=== PATIENT | male | born 1975 | race Caucasian/White ===

== ENCOUNTER 2017-11-20 12:40 | Emergency (ER) | payer BC, OTHER ==
[2017-11-20] MEDS ORDERED: Sodium Chloride 0.9% 1,000 ML IV ONE ×2 (13:20→13:26)
[2017-11-20] MEDS ORDERED: LORazepam 2 MG/ML SDV IVPUSH ONE (13:20)
[2017-11-20] MEDS ORDERED: Atenolol 50 MG Tab PO ONE (13:20)
[2017-11-20] MEDS ORDERED: chlordiazePOXIDE 25 MG Cap PO ONE (13:27)
[2017-11-20] MEDS ORDERED: Folic Acid 1 MG Tab PO ONE (13:27)
[2017-11-20] MEDS ORDERED: Thiamine 100 MG Tab PO ONE (13:27)
--- NOTE | 2017-11-20 13:31 | EDM.PDOCBH ---
ED HPI GENERAL MEDICAL PROBLEM - General Chief Complaint: Chest Pain Stated Complaint: TIGHT CHEST Time Seen by Provider: 11/20/17 13:05 Source of Information: Reports: Patient History Limitations: Reports: No Limitations - History of Present Illness INITIAL COMMENTS - FREE TEXT/NARRATIVE: Patient is a 42-year-old male presents ED complaining of chest tightness, tremors, and sweating. Patient states over the past few months after lunch he's been noticing that he started to shake. Patient states he drinks alcohol on a regular basis. As of recent has noticed an increased consumption of alcohol in the evening just prior to bedtime. He drinks to go to bed. This helps him settle down. He has no history of anxiety. States he's been doing this for the past 12 years every day. With the tremors and diaphoresis he became anxious and felt some palpitations along with increased breathing rate. This is when his chest felt tight. He does not believe he is an alcoholic. He's never underwent inpatient or outpatient treatment for alcoholism. He has no additional past medical history and currently taking no medications. He has no surgical history. Denies any smoking. Denies any recreational drug use. Their is no first degree relative with heart disease. Chest Pain Score (Numeric/FACES): 1 - Related Data Allergies Allergy/AdvReac Type Severity Reaction Status Date / Time No Known Allergies Allergy Verified 11/20/17 12:49 Home Meds: Home Meds . [No Known Home Meds] 10/12/14 [History] Past Medical History HEENT History: Reports: Impaired Vision Musculoskeletal History: Reports: Back Pain, Chronic - Past Surgical History GI Surgical History: Reports: Cholecystectomy Social & Family History - Tobacco Use Second Hand Smoke Exposure: Yes - Caffeine Use Caffeine Use: Reports: Coffee Other Caffeine Use: cut down in the last week d/t shakiness - Alcohol Use Days Per Week of Alcohol Use: 7 Number of Drinks Per Day: 2 Total Drinks Per Week: 14 Date of Last Drink: 11/19/17 - Recreational Drug Use Recreational Drug Use: No ED ROS GENERAL - Review of Systems Review Of Systems: See Below Constitutional: Reports: No Symptoms HEENT: Reports: No Symptoms Respiratory: Reports: No Symptoms Cardiovascular: Reports: Palpitations. Denies: Chest Pain, Dyspnea on Exertion , Edema, Lightheadedness GI/Abdominal: Reports: No Symptoms Musculoskeletal: Reports: No Symptoms Skin: Reports: No Symptoms Neurological: Reports: Tremors. Denies: Confusion, Dizziness, Headache, Numbness, Pre-Existing Deficit, Seizure, Syncope, Tingling, Trouble Speaking, Difficulty Walking, Weakness Psychiatric: Reports: Anxiety, Cravings. Denies: Agitation, Depression, Hallucinations, Homicidal Ideation, Mood Lability, Suicidal Ideation ED EXAM, BEHAVIORAL HEALTH - Physical Exam Exam: See Below Exam Limited By: No Limitations General Appearance: Alert, WD/WN, Anxious Eye Exam: Bilateral Eye: EOMI, Nystagmus (none noted), PERRL Ears: Hearing Grossly Normal Nose: Normal Inspection Throat/Mouth: Normal Voice, No Airway Compromise, Other (dry oral mucosa) Neck: Normal Inspection, Supple Respiratory/Chest: No Respiratory Distress, Lungs Clear, Normal Breath Sounds, No Accessory Muscle Use, Chest Non-Tender Cardiovascular: Normal Peripheral Pulses, Regular Rate, Rhythm, No Murmur GI/Abdominal: Normal Bowel Sounds, Soft, Non-Tender, No Organomegaly, No Distention Back Exam: Normal Inspection Extremities: Normal Inspection, Normal Range of Motion Neurological: Alert, CN II-XII Intact, Normal Cognition, Normal Gait, No Motor/ Sensory Deficits, Oriented x 3 Psychiatric: Alert, Normal Affect, Normal Cognition, Oriented, Other (anxious). No: Uncooperative, Homicidal Thoughts, Suicidal Plan, Suicidal Thoughts, Auditory Hallucinations, Visual Hallucinations, Pressured Speech COURSE, BEHAVIORAL HEALTH COMP - Course Vital Signs: Last Vital Signs Temp 97.4 F 11/20/17 16:25 Pulse 78 11/20/17 16:25 Resp 22 H 11/20/17 16:25 BP 129/94 H 11/20/17 16:25 Pulse Ox 98 11/20/17 16:25 Orders, Labs, Meds: Active Orders 24 hr Category Date Time Status EKG Documentation Completion [RC] ASDIRECTED Care 11/20/17 13:53 Active DRUG SCREEN, URINE [URCHEM] Stat Lab 11/20/17 14:30 Ordered EKG 12 Lead [EK] Stat Ther 11/20/17 13:53 Ordered Laboratory Tests 11/20/17 11/20/17 11/20/17 Range/Units 13:02 13:05 13:05 WBC 5.40 (4.23-9.07) K/mm3 RBC 4.39 L (4.63-6.08) M/mm3 Hgb 14.9 (13.7-17.5) gm/L Hct 45.3 (40.1-51.0) % MCV 103.2 H (79.0-92.2) fl MCH 33.9 H (25.7-32.2) pg MCHC 32.9 (32.2-35.5) g/dl RDW Std Deviation 48.4 H (35.1-43.9) fL Plt Count 157 L (163-337) K/mm3 MPV 9.3 L (9.4-12.3) fl Neutrophils % (Manual) 65 H (40-60) % Band Neutrophils % 0 (0-10) % Lymphocytes % (Manual) 31 (20-40) % Atypical Lymphs % 0 % Monocytes % (Manual) 4 (2-10) % Eosinophils % (Manual) 0 L (0.8-7.0) % Basophils % (Manual) 0 L (0.2-1.2) Toxic Granulation 2+ moderate Platelet Estimate Adequate Plt Morphology Comment Normal RBC Morph Comment Normal Sodium 140 (136-145) mEq/L Potassium 3.6 (3.5-5.1) mEq/L Chloride 102 (98-107) mEq/L Carbon Dioxide 24 (21-32) mEq/L Anion Gap 17.6 H (5-15) BUN 10 (7-18) mg/dL Creatinine 1.0 (0.7-1.3) mg/dL Est Cr Clr Drug Dosing 106.53 mL/min Estimated GFR (MDRD) > 60 (>60) mL/min BUN/Creatinine Ratio 10.0 L (14-18) Glucose 171 H (74-106) mg/dL POC Glucose 150 H (70-105) mg/dL Calcium 8.6 (8.5-10.1) mg/dL Magnesium (1.8-2.4) mg/dl Total Bilirubin 1.3 H (0.2-1.0) mg/dL AST 239 H (15-37) U/L ALT 263 H (16-63) U/L Alkaline Phosphatase 77 (46-116) U/L Troponin I (0.00-0.056) ng/mL Total Protein 8.6 H (6.4-8.2) g/dl Albumin 3.9 (3.4-5.0) g/dl Globulin 4.7 gm/dL Albumin/Globulin Ratio 0.8 L (1-2) TSH 3rd Generation 1.366 (0.358-3.74) uIU/mL Urine Color (Yellow) Urine Appearance (Clear) Urine pH (5.0-8.0) Ur Specific [place] (1.005-1.030) Urine Protein (Negative) Urine Glucose (UA) (Negative) Urine Ketones (Negative) Urine Occult Blood (Negative) Urine Nitrite (Negative) Urine Bilirubin (Negative) Urine Urobilinogen (0.2-1.0) Ur Leukocyte Esterase (Negative) Urine RBC (0-5) /hpf Urine WBC (0-5) /hpf Ur Epithelial Cells (0-5) /hpf Urine Bacteria (FEW) /hpf Urine Mucus (FEW) /hpf Urine Opiates Screen (NEGATIVE) Ur Buprenorphine Scrn (NEGATIVE) Ur Oxycodone Screen (NEGATIVE) Urine Methadone Screen (NEGATIVE) Ur Propoxyphene Screen (NEGATIVE) Ur Barbiturates Screen (NEGATIVE) Ur Tricyclics Screen (NEGATIVE) Ur Phencyclidine Scrn (NEGATIVE) Ur Amphetamine Screen (NEGATIVE) U Methamphetamines Scrn (NEGATIVE) U Benzodiazepines Scrn (NEGATIVE) U Cocaine Metab Screen (NEGATIVE) U Marijuana (THC) Screen (NEGATIVE) Ethyl Alcohol (0.00) gm% 11/20/17 11/20/17 11/20/17 Range/Units 13:05 14:30 14:30 WBC (4.23-9.07) K/mm3 RBC (4.63-6.08) M/mm3 Hgb (13.7-17.5) gm/L Hct (40.1-51.0) % MCV (79.0-92.2) fl MCH (25.7-32.2) pg MCHC (32.2-35.5) g/dl RDW Std Deviation (35.1-43.9) fL Plt Count (163-337) K/mm3 MPV (9.4-12.3) fl Neutrophils % (Manual) (40-60) % Band Neutrophils % (0-10) % Lymphocytes % (Manual) (20-40) % Atypical Lymphs % % Monocytes % (Manual) (2-10) % Eosinophils % (Manual) (0.8-7.0) % Basophils % (Manual) (0.2-1.2) Toxic Granulation Platelet Estimate Plt Morphology Comment RBC Morph Comment Sodium (136-145) mEq/L Potassium (3.5-5.1) mEq/L Chloride (98-107) mEq/L Carbon Dioxide (21-32) mEq/L Anion Gap (5-15) BUN (7-18) mg/dL Creatinine (0.7-1.3) mg/dL Est Cr Clr Drug Dosing mL/min Estimated GFR (MDRD) (>60) mL/min BUN/Creatinine Ratio (14-18) Glucose (74-106) mg/dL POC Glucose (70-105) mg/dL Calcium (8.5-10.1) mg/dL Magnesium 1.8 (1.8-2.4) mg/dl Total Bilirubin (0.2-1.0) mg/dL AST (15-37) U/L ALT (16-63) U/L Alkaline Phosphatase (46-116) U/L Troponin I < 0.017 (0.00-0.056) ng/mL Total Protein (6.4-8.2) g/dl Albumin (3.4-5.0) g/dl Globulin gm/dL Albumin/Globulin Ratio (1-2) TSH 3rd Generation (0.358-3.74) uIU/mL Urine Color Yellow (Yellow) Urine Appearance Clear (Clear) Urine pH 6.5 (5.0-8.0) Ur Specific [place] 1.025 (1.005-1.030) Urine Protein 1+ H (Negative) Urine Glucose (UA) Negative (Negative) Urine Ketones Trace H (Negative) Urine Occult Blood Negative (Negative) Urine Nitrite Negative (Negative) Urine Bilirubin Negative (Negative) Urine Urobilinogen 1.0 (0.2-1.0) Ur Leukocyte Esterase Negative (Negative) Urine RBC 0-5 (0-5) /hpf Urine WBC 0-5 (0-5) /hpf Ur Epithelial Cells 0-5 (0-5) /hpf Urine Bacteria Not seen (FEW) /hpf Urine Mucus Not seen (FEW) /hpf Urine Opiates Screen Negative (NEGATIVE) Ur Buprenorphine Scrn Negative (NEGATIVE) Ur Oxycodone Screen Negative (NEGATIVE) Urine Methadone Screen Negative (NEGATIVE) Ur Propoxyphene Screen Negative (NEGATIVE) Ur Barbiturates Screen Negative (NEGATIVE) Ur Tricyclics Screen Negative (NEGATIVE) Ur Phencyclidine Scrn Negative (NEGATIVE) Ur Amphetamine Screen Negative (NEGATIVE) U Methamphetamines Scrn Negative (NEGATIVE) U Benzodiazepines Scrn Negative (NEGATIVE) U Cocaine Metab Screen Negative (NEGATIVE) U Marijuana (THC) Screen Negative (NEGATIVE) Ethyl Alcohol 0.06 (0.00) gm% Medications Discontinued Medications Generic Name Dose Route Start Last Admin Trade Name Freq PRN Reason Stop Dose Admin Atenolol 50 mg 11/20/17 13:20 11/20/17 13:39 Tenormin PO 11/20/17 13:21 50 mg ONETIME ONE Administration Chlordiazepoxide HCl 50 mg 11/20/17 13:27 11/20/17 13:39 Librium PO 11/20/17 13:28 50 mg ONETIME ONE Administration Folic Acid 1 mg 11/20/17 13:27 11/20/17 13:39 Folic Acid PO 11/20/17 13:28 1 mg ONETIME ONE Administration Sodium Chloride 1,000 mls @ 999 mls/hr 11/20/17 13:20 11/20/17 13:37 Normal Saline IV 11/20/17 14:20 999 mls/hr ONETIME ONE Administration Sodium Chloride 1,000 mls @ 999 mls/hr 11/20/17 13:26 11/20/17 14:37 Normal Saline IV 11/20/17 14:26 999 mls/hr ONETIME ONE Administration Lorazepam 0 mg 11/20/17 13:20 11/20/17 13:42 Ativan IVPUSH 11/20/17 13:21 2 mg ASDIRECTED ONE Administration Protocol Thiamine HCl 100 mg 11/20/17 13:27 11/20/17 13:40 Vitamin B-1 PO 11/20/17 13:28 100 mg ONETIME ONE Administration Re-Assessment/Re-Exam: IV established with normal saline 2 L IV, thiamine her milligrams by mouth, folic acid 1 mg by mouth, atenolol 50 mg by mouth, and Librium 50 mg by mouth. Initial labs and studies will include: CBC, chem 14, drug screen, TSH, UA, troponin, serum EtOH, and magnesium. EKG: sinus tachycardia, rate of 110, no acute st changes noted. Sodium and potassium within normal limits. AG mildly elevated at 17.6. Creatinine 1.0. Glucose 171. Magnesium 1.8. AST and ALT elevated. Troponin less than 0.017. TSH 1.366. Serum EtOH 0.06. 1532 Reassessment, patient is feeling much better with the above therapies. He has no chest pain or sob. He does not want help for alcoholism. I have offered contact information for different treatment facilities here locally. In addition I will provide Librium and also atenolol on discharge for the next 5 days for alcohol withdrawal symptoms. He will call and make an appointment to be evaluated. He had no additional questions or concerns. 1548 I did call lab. CBC has not been resulted. This has not been read yet. Results are pending. Patient has not been able to provide a UA sample. I initially was going to send patient home with atenolol and librium. Patient does not believe he has a problem. I have a high suspicion he will consume alcohol this evening. Thus I have opted not to send patient home with medications. Departure - Departure Time of Disposition: 15:49 Disposition: Home, Self-Care 01 Condition: Good Clinical Impression: Alcoholism /alcohol abuse Alcohol withdrawal Qualifiers: Complication of substance-induced condition: uncomplicated Qualified Code(s): F10.230 - Alcohol dependence with withdrawal, uncomplicated - Discharge Information Instructions: Alcohol Use Disorder, Chemical Dependency Referrals: Pavel Gomez LAC [Licensed Counselor] - [facility] [Outside] Forms: ED Department Discharge Additional Instructions: Push the fluids. Refrain from alcohol use. Call Pavel Barrera office tomorrow morning for an appt to be evaluated. If unable to get into an appt please call [facility]. Please return to the E.D. if you develop any new or worsening symptoms. - My Orders Last 24 Hours: My Active Orders 11/20/17 13:53 EKG Documentation Completion [RC] ASDIRECTED EKG 12 Lead [EK] Stat 11/20/17 14:30 DRUG SCREEN, URINE [URCHEM] Stat - Assessment/Plan Last 24 Hours: My Active Orders 11/20/17 13:53 EKG Documentation Completion [RC] ASDIRECTED EKG 12 Lead [EK] Stat 11/20/17 14:30 DRUG SCREEN, URINE [URCHEM] Stat
== END 2017-11-20 16:27 | disposition home or self-care (01) ==
LOC: JD.ED 12:40
DX: F10.230 Alcohol dependence with withdrawal, uncomplicated (principal)
CPT/HCPCS: 36415; 80053; 80306; 81001; 82962; 83735; 84443; 84484; 85007; 85027; 93005; 96361; 96374; 99285; A9270; G0480; J2060; J7040

== ENCOUNTER 2019-01-01 18:44 | Inpatient (IN) | payer BC ==
[2019-01-01] MEDS ORDERED: Thiamine 100 MG Tab PO ONE (19:45)
[2019-01-01] MEDS ORDERED: Ondansetron 4 MG/2 ML SDV IVPUSH ONE (19:45)
[2019-01-01] MEDS ORDERED: Sodium Chloride 0.9% 1,000 ML IV SCH (19:45)
[2019-01-01] MEDS ORDERED: LORazepam 2 MG/ML SDV IVPUSH ONE (19:46)
[2019-01-01] MEDS ORDERED: Folic Acid 1 MG Tab PO ONE (19:46)
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
[2019-01-01] MEDS ORDERED: chlordiazePOXIDE 25 MG Cap PO ONE (20:19)
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
[2019-01-01] MEDS ORDERED: Magnesium Sulfate/Water 4 GM in Premix Bag 1 BAG IV ONE (22:44)
[2019-01-01] MEDS ORDERED: Ondansetron 4 MG Tab.DIS PO PRN (22:45)
[2019-01-01] MEDS ORDERED: Ondansetron 4 MG/2 ML SDV IV PRN (22:45)
[2019-01-01] MEDS: Pantoprazole 40 MG Vial IVPUSH SCH (23:46)
[2019-01-01] MEDS: Lactated Ringers 1,000 ML IV SCH (23:50)
[2019-01-01] MEDS: Thiamine 200 MG/2 ML MDV IVPUSH SCH (23:52)
[2019-01-02] MEDS: Thiamine 200 MG/2 ML MDV IVPUSH SCH ×3 (06:15→21:44)
[2019-01-02] MEDS ORDERED: Enoxaparin 40 MG/0.4 ML Syringe SUBCUT SCH (09:00)
[2019-01-02] MEDS: Lactated Ringers 1,000 ML IV SCH (09:10)
[2019-01-02] MEDS: Potassium Chloride 10 MEQ in Premix Bag 1 BAG IV SCH ×4 (09:11→12:18)
[2019-01-02] MEDS: Pantoprazole 40 MG Vial IVPUSH SCH ×2 (11:13→21:45)
--- NOTE | 2019-01-02 11:19 | CR ---
Chest: Portable view of the chest was obtained. Comparison: Prior chest x-ray of 10/12/14. Heart size and mediastinum are normal. Lungs are clear. Bony structures are grossly intact. Impression: 1. Nothing acute is seen on portable chest. Diagnostic code #2
--- NOTE | 2019-01-02 11:40 | PCM.PN ---
- General Info Date of Service: 01/02/19 Admission Dx/Problem (Free Text): Admission Diagnosis/Problem Admission Diagnosis/Problem Alcohol abuse Subjective Update: uJan is doing well. He has a mild tremor but did not receive any more benzodiazepines overnight. He ate half of his breakfast. He denies any abdominal pain. - Patient Data Vitals - Most Recent: Last Vital Signs Temp 97.9 F 01/02/19 08:00 Pulse 79 01/02/19 03:47 Resp 18 01/02/19 08:00 BP 130/91 H 01/02/19 08:00 Pulse Ox 100 01/02/19 08:00 Weight - Most Recent: 180 lb I&O - Last 24 Hours: Intake & Output 01/01/19 01/02/19 01/02/19 22:59 06:59 14:59 Intake Total 1050 240 Balance 1050 240 Lab Results Last 24 Hours: Laboratory Results - last 24 hr 01/01/19 01/01/19 01/01/19 Range/Units 20:12 20:12 20:12 WBC 7.26 (4.23-9.07) K/mm3 RBC 4.27 L (4.63-6.08) M/mm3 Hgb 14.7 (13.7-17.5) gm/dl Hct 43.5 (40.1-51.0) % MCV 101.9 H (79.0-92.2) fl MCH 34.4 H (25.7-32.2) pg MCHC 33.8 (32.2-35.5) g/dl RDW Std Deviation 51.1 H (35.1-43.9) fL Plt Count 122 L D (163-337) K/mm3 MPV 9.2 L (9.4-12.3) fl Neut % (Auto) 79.5 H (34.0-67.9) % Lymph % (Auto) 12.8 L (21.8-53.1) % [place] % (Auto) 7.2 (5.3-12.2) % Eos % (Auto) 0.1 L (0.8-7.0) Baso % (Auto) 0.3 (0.1-1.2) % Neut # (Auto) 5.77 H (1.78-5.38) K/mm3 Lymph # (Auto) 0.93 L (1.32-3.57) K/mm3 [place] # (Auto) 0.52 (0.30-0.82) K/mm3 Eos # (Auto) 0.01 L (0.04-0.54) K/mm3 Baso # (Auto) 0.02 (0.01-0.08) K/mm3 Manual Slide Review Abnormal smear PT 11.7 (9.7-12.0) SECONDS INR 1.08 Sodium 139 (136-145) mEq/L Potassium 4.0 (3.5-5.1) mEq/L Chloride 102 (98-107) mEq/L Carbon Dioxide 26 (21-32) mEq/L Anion Gap 15.0 (5-15) BUN 8 (7-18) mg/dL Creatinine 0.8 (0.7-1.3) mg/dL Est Cr Clr Drug Dosing 131.78 mL/min Estimated GFR (MDRD) > 60 (>60) mL/min BUN/Creatinine Ratio 10.0 L (14-18) Glucose 91 (74-106) mg/dL Calcium 9.7 (8.5-10.1) mg/dL Magnesium 1.6 L (1.8-2.4) mg/dl Iron (65-175) ug/dL TIBC (100-400) ug/dL % Saturation (20-55) % Transferrin (202-364) mg/dL Ferritin (26-388) ng/ml Total Bilirubin 2.0 H (0.2-1.0) mg/dL AST 475 H (15-37) U/L ALT 217 H (16-63) U/L Alkaline Phosphatase 75 (46-116) U/L Troponin I < 0.017 (0.00-0.056) ng/mL Total Protein 9.8 H (6.4-8.2) g/dl Albumin 4.1 (3.4-5.0) g/dl Globulin 5.7 gm/dL Albumin/Globulin Ratio 0.7 L (1-2) Lipase 180 (73-393) U/L Vitamin B12 (193-986) pg/ml Urine Opiates Screen (LBZMNJ=940) Ur Buprenorphine Scrn (CUTOFF=10) Ur Oxycodone Screen (RGQ7QT=324) Urine Methadone Screen (ZTD1CC=780) Ur Propoxyphene Screen (YKKOAQ=887) Ur Barbiturates Screen (ECYJPV=481) Ur Tricyclics Screen (BRBMZH=689) Ur Phencyclidine Scrn (CUTOFF=25) Ur Amphetamine Screen (LUDERQ=154) U Methamphetamines Scrn (XIRHDK=362) U Benzodiazepines Scrn (PIYVHO=047) U Cocaine Metab Screen (SSUXOP=979) U Marijuana (THC) Screen (CUTOFF=50) Hepatitis C Antibody (NEGATIVE) 01/01/19 01/02/19 01/02/19 Range/Units 21:32 04:15 04:15 WBC 6.78 (4.23-9.07) K/mm3 RBC 3.54 L (4.63-6.08) M/mm3 Hgb 12.2 L D (13.7-17.5) gm/dl Hct 36.5 L (40.1-51.0) % MCV 103.1 H (79.0-92.2) fl MCH 34.5 H (25.7-32.2) pg MCHC 33.4 (32.2-35.5) g/dl RDW Std Deviation 51.0 H (35.1-43.9) fL Plt Count 91 L (163-337) K/mm3 MPV 9.2 L (9.4-12.3) fl Neut % (Auto) 68.5 H (34.0-67.9) % Lymph % (Auto) 22.6 (21.8-53.1) % [place] % (Auto) 7.5 (5.3-12.2) % Eos % (Auto) 1.2 (0.8-7.0) Baso % (Auto) 0.1 (0.1-1.2) % Neut # (Auto) 4.64 (1.78-5.38) K/mm3 Lymph # (Auto) 1.53 (1.32-3.57) K/mm3 [place] # (Auto) 0.51 (0.30-0.82) K/mm3 Eos # (Auto) 0.08 (0.04-0.54) K/mm3 Baso # (Auto) 0.01 (0.01-0.08) K/mm3 Manual Slide Review Abnormal smear PT (9.7-12.0) SECONDS INR Sodium 135 L (136-145) mEq/L Potassium 3.2 L (3.5-5.1) mEq/L Chloride 99 (98-107) mEq/L Carbon Dioxide 26 (21-32) mEq/L Anion Gap 13.2 (5-15) BUN 8 (7-18) mg/dL Creatinine 0.8 (0.7-1.3) mg/dL Est Cr Clr Drug Dosing 131.78 mL/min Estimated GFR (MDRD) > 60 (>60) mL/min BUN/Creatinine Ratio 10.0 L (14-18) Glucose 96 (74-106) mg/dL Calcium 8.7 (8.5-10.1) mg/dL Magnesium 2.6 H (1.8-2.4) mg/dl Iron (65-175) ug/dL TIBC (100-400) ug/dL % Saturation (20-55) % Transferrin (202-364) mg/dL Ferritin (26-388) ng/ml Total Bilirubin 2.5 H (0.2-1.0) mg/dL AST 268 H (15-37) U/L ALT 144 H (16-63) U/L Alkaline Phosphatase 61 (46-116) U/L Troponin I (0.00-0.056) ng/mL Total Protein 7.8 (6.4-8.2) g/dl Albumin 3.3 L (3.4-5.0) g/dl Globulin 4.5 gm/dL Albumin/Globulin Ratio 0.7 L (1-2) Lipase (73-393) U/L Vitamin B12 (193-986) pg/ml Urine Opiates Screen Negative (YTGNFJ=441) Ur Buprenorphine Scrn Negative (CUTOFF=10) Ur Oxycodone Screen Negative (QCA0RJ=501) Urine Methadone Screen Negative (EAX4MJ=965) Ur Propoxyphene Screen Negative (TDQSKJ=881) Ur Barbiturates Screen Negative (GZMWMY=589) Ur Tricyclics Screen Negative (VMAMPS=301) Ur Phencyclidine Scrn Negative (CUTOFF=25) Ur Amphetamine Screen Negative (NRUFHH=516) U Methamphetamines Scrn Negative (OPJYHN=070) U Benzodiazepines Scrn Negative (RRRHBX=799) U Cocaine Metab Screen Negative (HEVUWH=489) U Marijuana (THC) Screen Negative (CUTOFF=50) Hepatitis C Antibody (NEGATIVE) 01/02/19 01/02/1919 Range/Units 04:15 04:15 04:15 WBC (4.23-9.07) K/mm3 RBC (4.63-6.08) M/mm3 Hgb (13.7-17.5) gm/dl Hct (40.1-51.0) % MCV (79.0-92.2) fl MCH (25.7-32.2) pg MCHC (32.2-35.5) g/dl RDW Std Deviation (35.1-43.9) fL Plt Count (163-337) K/mm3 MPV (9.4-12.3) fl Neut % (Auto) (34.0-67.9) % Lymph % (Auto) (21.8-53.1) % [place] % (Auto) (5.3-12.2) % Eos % (Auto) (0.8-7.0) Baso % (Auto) (0.1-1.2) % Neut # (Auto) (1.78-5.38) K/mm3 Lymph # (Auto) (1.32-3.57) K/mm3 [place] # (Auto) (0.30-0.82) K/mm3 Eos # (Auto) (0.04-0.54) K/mm3 Baso # (Auto) (0.01-0.08) K/mm3 Manual Slide Review PT (9.7-12.0) SECONDS INR Sodium (136-145) mEq/L Potassium (3.5-5.1) mEq/L Chloride (98-107) mEq/L Carbon Dioxide (21-32) mEq/L Anion Gap (5-15) BUN (7-18) mg/dL Creatinine (0.7-1.3) mg/dL Est Cr Clr Drug Dosing mL/min Estimated GFR (MDRD) (>60) mL/min BUN/Creatinine Ratio (14-18) Glucose (74-106) mg/dL Calcium (8.5-10.1) mg/dL Magnesium (1.8-2.4) mg/dl Iron 135 (65-175) ug/dL TIBC 203 (100-400) ug/dL % Saturation 67 H (20-55) % Transferrin 162 L (202-364) mg/dL Ferritin 4513 H (26-388) ng/ml Total Bilirubin (0.2-1.0) mg/dL AST (15-37) U/L ALT (16-63) U/L Alkaline Phosphatase (46-116) U/L Troponin I (0.00-0.056) ng/mL Total Protein (6.4-8.2) g/dl Albumin (3.4-5.0) g/dl Globulin gm/dL Albumin/Globulin Ratio (1-2) Lipase (73-393) U/L Vitamin B12 324 (193-986) pg/ml Urine Opiates Screen (AHCIID=837) Ur Buprenorphine Scrn (CUTOFF=10) Ur Oxycodone Screen (AXO5VA=422) Urine Methadone Screen (KZC1KU=177) Ur Propoxyphene Screen (RDRCCI=482) Ur Barbiturates Screen (GNHWKN=140) Ur Tricyclics Screen (PKEJIB=529) Ur Phencyclidine Scrn (CUTOFF=25) Ur Amphetamine Screen (WMRLDB=253) U Methamphetamines Scrn (XFDIJF=185) U Benzodiazepines Scrn (XCAQHW=759) U Cocaine Metab Screen (LEXXQD=587) U Marijuana (THC) Screen (CUTOFF=50) Hepatitis C Antibody Negative (NEGATIVE) Med Orders - Current: Current Medications Folic Acid (Folic Acid) 1 mg PO BEDTIME RAFI Sodium Chloride (Normal Saline) 1,000 mls @ 1,000 mls/hr IV ASDIRECTED RAFI Last Admin: 01/01/19 20:08 Dose: 1,000 mls/hr Lactated Ringer's (Ringers, Lactated) 1,000 mls @ 125 mls/hr IV ASDIRECTED RAFI Last Admin: 01/02/19 09:10 Dose: 125 mls/hr Potassium Chloride 10 meq/ (Premix) 100 mls @ 100 mls/hr IV Q1H RAFI Stop: 01/02/19 12:29 Last Admin: 01/02/19 11:13 Dose: 100 mls/hr Lorazepam (Ativan) 1 mg PO Q4H PRN; Protocol PRN Reason: Withdrawal Symptoms Ondansetron HCl (Zofran Odt) 4 mg PO Q4H PRN PRN Reason: nausea, able to take PO Ondansetron HCl (Zofran) 4 mg IV Q4H PRN PRN Reason: Nausea/Vomiting Pantoprazole Sodium (Protonix Iv) 40 mg IVPUSH Q12H [facility] Last Admin: 01/02/19 11:13 Dose: 40 mg Thiamine HCl (Vitamin B-1) 100 mg IVPUSH Q8H [facility] Last Admin: 01/02/19 06:15 Dose: 100 mg Discontinued Medications Chlordiazepoxide HCl (Librium) 50 mg PO ONETIME ONE Stop: 01/01/19 20:20 Last Admin: 01/01/19 20:44 Dose: 50 mg Enoxaparin Sodium (Lovenox) 40 mg SUBCUT DAILY [facility] Last Admin: 01/02/19 09:09 Dose: Not Given Folic Acid (Folic Acid) 1 mg PO ONETIME ONE Stop: 01/01/19 19:47 Last Admin: 01/01/19 20:08 Dose: 1 mg Magnesium Sulfate 4 gm/ Premix 50 mls @ 12.5 mls/hr IV ONETIME ONE Stop: 01/02/19 02:43 Last Admin: 01/01/19 23:54 Dose: 12.5 mls/hr Lorazepam (Ativan) 1 mg IVPUSH ONETIME ONE Stop: 01/01/19 19:47 Last Admin: 01/01/19 20:08 Dose: 1 mg Ondansetron HCl (Zofran) 4 mg IVPUSH ONETIME ONE Stop: 01/01/19 19:46 Last Admin: 01/01/19 20:08 Dose: 4 mg Thiamine HCl (Vitamin B-1) 100 mg PO ONETIME ONE Stop: 01/01/19 19:46 Last Admin: 01/01/19 20:08 Dose: 100 mg - Exam Quality Assessment: No: Supplemental Oxygen General: Alert, Oriented HEENT: Pupils Equal, Pupils Reactive, EOMI, Mucous Membr. Moist/[place] Neck: Supple Lungs: Clear to Auscultation, Normal Respiratory Effort Cardiovascular: Regular Rate, Regular Rhythm GI/Abdominal Exam: Normal Bowel Sounds, Soft, Non-Tender, No Distention Extremities: Normal Inspection, Normal Range of Motion, Non-Tender, No Pedal Edema, Normal Capillary Refill Skin: Warm, Dry, Intact Neurological: No New Focal Deficit Psy/Mental Status: Alert, Normal Affect, Normal Mood - Problem List Review Problem List Initiated/Reviewed/Updated: Yes - My Orders Last 24 Hours: My Active Orders 01/01/19 22:40 LORazepam [Ativan] 1 mg PO Q4H PRN 01/01/19 22:43 CIWAA Assessment [RC] Q4HR 01/01/19 22:45 Up ad Sofya [RC] ASDIRECTED VTE/DVT Education [RC] BID Vital Signs [RC] Q4HR Lactated Ringers [Ringers, Lactated] 1,000 ml IV ASDIRECTED Ondansetron [Zofran ODT] 4 mg PO Q4H PRN Ondansetron [Zofran] 4 mg IV Q4H PRN Pantoprazole [ProTONIX IV] 40 mg IVPUSH Q12H Thiamine [Vitamin B-1] 100 mg IVPUSH Q8H Resuscitation Status Routine 01/01/19 22:47 Consult to Case Management/[employer] [CONS] Routine 01/02/19 04:15 HEPATITIS B SURFACE AG [CHEM] Routine HEPATITIS PANEL (4) [REF] Routine 01/02/19 08:24 Consult for Substance Abuse [CONS] Routine Abdomen Comp [US] Routine 01/02/19 08:30 Potassium Chloride [KCl 10 MEQ in Water 100 ML] 10 meq Premix Bag 1 bag IV Q1H 01/02/19 11:33 SCD [Sequential Compression Device] [OM.PC] Routine 01/02/19 11:34 Antiembolic Devices [RC] PER UNIT ROUTINE 01/02/19 21:00 Folic Acid 1 mg PO BEDTIME 01/02/19 Breakfast Regular Diet [DIET] 01/03/19 05:11 CBC WITH AUTO DIFF [HEME] AM COMPREHENSIVE METABOLIC PN,CMP [CHEM] AM MAGNESIUM [CHEM] AM 01/04/19 05:11 CBC WITH AUTO DIFF [HEME] AM COMPREHENSIVE METABOLIC PN,CMP [CHEM] AM MAGNESIUM [CHEM] AM 01/05/19 05:11 CBC WITH AUTO DIFF [HEME] AM COMPREHENSIVE METABOLIC PN,CMP [CHEM] AM MAGNESIUM [CHEM] AM 01/06/19 05:11 CBC WITH AUTO DIFF [HEME] AM COMPREHENSIVE METABOLIC PN,CMP [CHEM] AM MAGNESIUM [CHEM] AM - Plan Plan:: Assessment * 43-year-old male with acute alcohol withdrawal syndrome * Alcoholic hepatitis - AST/ALT ratio is 2-1. Total bilirubin increased to 2.5 and albumin decreased to 3.3. * Chronic alcohol use and addiction. Patient is requesting help with alcohol abstinence. * mild dehydration * thrombocytopenia * Macrocytic anemia - Percent iron saturation is 67%, but this could be a false positive secondary to malnutrition and a low transferrin. He should repeat this as an outpatient. * hypokalemia Plan * Monitor in ICU for acute alcohol withdrawal syndrome * CIWA protocol with Ativan secondary to alcoholic hepatitis * Consult behavioral health and discharge planning * IV fluids * encourage oral intake * IV thiamine 100 mg every 8 hours for 2-3 days. Folic acid 1 mg daily * Protonix 40 mg twice a day * hepatitis workup to include viral hepatitis panel, iron, total iron-binding capacity, and ultrasound. elevated iron saturation possibly secondary to malnutrition. Should be repeated. * Daily CBC, CMP, magnesium * VTE prophylaxis: stop Lovenox and switch to SCD secondary to thrombocytopenia * CODE STATUS: Full code * Length of stay 3-4 days.
[2019-01-02] MEDS: LORazepam 1 MG Tab PO PRN ×2 (14:04→21:37)
[2019-01-02] MEDS: Folic Acid 1 MG Tab PO SCH (21:37)
[2019-01-03] MEDS: Thiamine 200 MG/2 ML MDV IVPUSH SCH ×3 (06:42→20:07)
[2019-01-03] MEDS: Pantoprazole 40 MG Vial IVPUSH SCH ×2 (10:06→22:46)
[2019-01-03] MEDS ORDERED: Folic Acid 1 MG Tab PO SCH (11:15)
[2019-01-03] MEDS: FLUoxetine 20 MG Cap PO SCH (11:39)
[2019-01-03] MEDS ORDERED: Topiramate 25 MG Tab PO SCH (12:00)
[2019-01-03] MEDS ORDERED: Thiamine 100 MG Tab PO SCH (12:00)
[2019-01-03] MEDS ORDERED: QUEtiapine 25 MG Tab PO ONE (12:00)
[2019-01-03] MEDS ORDERED: LORazepam 1 MG Tab PO ONE (12:00)
--- NOTE | 2019-01-03 15:19 | PCM.PN ---
- General Info Date of Service: 01/03/19 Admission Dx/Problem (Free Text): Admission Diagnosis/Problem Admission Diagnosis/Problem Alcohol abuse Subjective Update: patient states that he is feeling anxious. He had an episode of anxiety 2-3 years ago. He generally does not feel anxious but is having increasing anxiety right now. he does have a mild tremor, but denies any nausea. - Review of Systems General: Reports: No Symptoms HEENT: Reports: No Symptoms Pulmonary: Reports: No Symptoms Cardiovascular: Reports: No Symptoms Gastrointestinal: Reports: No Symptoms Genitourinary: Reports: No Symptoms - Patient Data Vitals - Most Recent: Last Vital Signs Temp 97.9 F 01/03/19 08:00 Pulse 109 H 01/03/19 00:00 Resp 18 01/03/19 08:00 BP 133/93 H 01/03/19 08:00 Pulse Ox 97 01/03/19 08:00 Weight - Most Recent: 175 lb I&O - Last 24 Hours: Intake & Output 01/03/19 01/03/19 01/03/19 06:59 14:59 22:59 Intake Total 1600 120 Balance 1600 120 Lab Results Last 24 Hours: Laboratory Results - last 24 hr 01/03/19 01/03/19 Range/Units 04:10 04:10 WBC 6.77 (4.23-9.07) K/mm3 RBC 3.71 L (4.63-6.08) M/mm3 Hgb 12.7 L (13.7-17.5) gm/dl Hct 38.5 L (40.1-51.0) % MCV 103.8 H (79.0-92.2) fl MCH 34.2 H (25.7-32.2) pg MCHC 33.0 (32.2-35.5) g/dl RDW Std Deviation 50.8 H (35.1-43.9) fL Plt Count 97 L (163-337) K/mm3 MPV 9.9 (9.4-12.3) fl Neut % (Auto) 68.4 H (34.0-67.9) % Lymph % (Auto) 21.6 L (21.8-53.1) % [place] % (Auto) 8.7 (5.3-12.2) % Eos % (Auto) 1.0 (0.8-7.0) Baso % (Auto) 0.0 L (0.1-1.2) % Neut # (Auto) 4.63 (1.78-5.38) K/mm3 Lymph # (Auto) 1.46 (1.32-3.57) K/mm3 [place] # (Auto) 0.59 (0.30-0.82) K/mm3 Eos # (Auto) 0.07 (0.04-0.54) K/mm3 Baso # (Auto) 0.00 L (0.01-0.08) K/mm3 Manual Slide Review Abnormal smear Sodium 136 (136-145) mEq/L Potassium 3.6 (3.5-5.1) mEq/L Chloride 100 (98-107) mEq/L Carbon Dioxide 28 (21-32) mEq/L Anion Gap 11.6 (5-15) BUN 8 (7-18) mg/dL Creatinine 0.8 (0.7-1.3) mg/dL Est Cr Clr Drug Dosing 130.92 mL/min Estimated GFR (MDRD) > 60 (>60) mL/min BUN/Creatinine Ratio 10.0 L (14-18) Glucose 106 (74-106) mg/dL Calcium 9.1 (8.5-10.1) mg/dL Magnesium 1.9 (1.8-2.4) mg/dl Total Bilirubin 1.6 H (0.2-1.0) mg/dL AST 158 H (15-37) U/L ALT 112 H (16-63) U/L Alkaline Phosphatase 80 (46-116) U/L Total Protein 8.3 H (6.4-8.2) g/dl Albumin 3.4 (3.4-5.0) g/dl Globulin 4.9 gm/dL Albumin/Globulin Ratio 0.7 L (1-2) Med Orders - Current: Current Medications Fluoxetine HCl (Prozac) 20 mg PO DAILY [facility] Last Admin: 01/03/19 11:39 Dose: 20 mg Folic Acid (Folic Acid) 1 mg PO BEDTIME [facility] Last Admin: 01/02/19 21:37 Dose: 1 mg Lorazepam (Ativan) 1 mg PO Q4H PRN; Protocol PRN Reason: Withdrawal Symptoms Last Admin: 01/02/19 21:37 Dose: 1 mg Ondansetron HCl (Zofran Odt) 4 mg PO Q4H PRN PRN Reason: nausea, able to take PO Ondansetron HCl (Zofran) 4 mg IV Q4H PRN PRN Reason: Nausea/Vomiting Pantoprazole Sodium (Protonix Iv) 40 mg IVPUSH Q12H [facility] Last Admin: 01/03/19 10:06 Dose: 40 mg Quetiapine Fumarate (Seroquel) 25 mg PO BEDTIME [facility] Thiamine HCl (Vitamin B-1) 100 mg IVPUSH Q8H [facility] Last Admin: 01/03/19 12:16 Dose: 100 mg Topiramate (Topamax) 25 mg PO BID [facility] Last Admin: 01/03/19 11:38 Dose: 25 mg Discontinued Medications Chlordiazepoxide HCl (Librium) 50 mg PO ONETIME ONE Stop: 01/01/19 20:20 Last Admin: 01/01/19 20:44 Dose: 50 mg Enoxaparin Sodium (Lovenox) 40 mg SUBCUT DAILY [facility] Last Admin: 01/02/19 09:09 Dose: Not Given Folic Acid (Folic Acid) 1 mg PO ONETIME ONE Stop: 01/01/19 19:47 Last Admin: 01/01/19 20:08 Dose: 1 mg Folic Acid (Folic Acid) 1 mg PO DAILY [facility] Last Admin: 01/03/19 12:13 Dose: Not Given Sodium Chloride (Normal Saline) 1,000 mls @ 1,000 mls[facility] Last Admin: 01/01/19 20:08 Dose: 1,000 mls/hr Magnesium Sulfate 4 gm/ Premix 50 mls @ 12.5 mls/hr IV ONETIME ONE Stop: 01/02/19 02:43 Last Admin: 01/01/19 23:54 Dose: 12.5 mls/hr Lactated Ringer's (Ringers, Lactated) 1,000 mls @ 125 mls[facility] Last Admin: 01/02/19 09:10 Dose: 125 mls/hr Potassium Chloride 10 meq/ (Premix) 100 mls @ 100 mls/hr IV Q1H [facility] Stop: 01/02/19 12:29 Last Admin: 01/02/19 12:18 Dose: 100 mls/hr Lorazepam (Ativan) 1 mg IVPUSH ONETIME ONE Stop: 01/01/19 19:47 Last Admin: 01/01/19 20:08 Dose: 1 mg Lorazepam (Ativan) 1 mg PO ONETIME ONE Stop: 01/03/19 12:01 Last Admin: 01/03/19 11:38 Dose: 1 mg Ondansetron HCl (Zofran) 4 mg IVPUSH ONETIME ONE Stop: 01/01/19 19:46 Last Admin: 01/01/19 20:08 Dose: 4 mg Quetiapine Fumarate (Seroquel) 25 mg PO ONETIME ONE Stop: 01/03/19 12:01 Thiamine HCl (Vitamin B-1) 100 mg PO ONETIME ONE Stop: 01/01/19 19:46 Last Admin: 01/01/19 20:08 Dose: 100 mg Thiamine HCl (Vitamin B-1) 100 mg IVPUSH Q8H [facility] Last Admin: 01/03/19 06:42 Dose: 100 mg Thiamine HCl (Vitamin B-1) 100 mg PO DAILY [facility] Last Admin: 01/03/19 11:38 Dose: 100 mg - Exam General: Alert, Oriented HEENT: Pupils Equal Neck: Supple Lungs: Clear to Auscultation, Normal Respiratory Effort Cardiovascular: Regular Rate, Regular Rhythm Extremities: Normal Inspection, Normal Range of Motion, Non-Tender, No Pedal Edema, Normal Capillary Refill Skin: Warm, Dry, Intact Psy/Mental Status: Anxious - Problem List Review Problem List Initiated/Reviewed/Updated: Yes - My Orders Last 24 Hours: My Active Orders 01/02/19 21:00 Folic Acid 1 mg PO BEDTIME 01/03/19 08:31 Consult to Physician [CONS] Routine 01/03/19 08:32 Notify Provider Consults [RC] ASDIRECTED 01/03/19 08:33 Patient Status [ADT] Routine 01/03/19 12:00 Thiamine [Vitamin B-1] 100 mg IVPUSH Q8H 01/04/19 05:11 CBC WITH AUTO DIFF [HEME] AM COMPREHENSIVE METABOLIC PN,CMP [CHEM] AM MAGNESIUM [CHEM] AM 01/05/19 05:11 CBC WITH AUTO DIFF [HEME] AM COMPREHENSIVE METABOLIC PN,CMP [CHEM] AM MAGNESIUM [CHEM] AM 01/06/19 05:11 CBC WITH AUTO DIFF [HEME] AM COMPREHENSIVE METABOLIC PN,CMP [CHEM] AM MAGNESIUM [CHEM] AM - Plan Plan:: Assessment * 43-year-old male with acute alcohol withdrawal syndrome * Alcoholic hepatitis - AST/ALT ratio is 2-1. improving * Chronic alcohol use and addiction. Patient is requesting help with alcohol abstinence. * mild dehydration * thrombocytopenia * Macrocytic anemia - Percent iron saturation is 67%, but this could be a false positive secondary to malnutrition and a low transferrin. He should repeat this as an outpatient. * hypokalemia * anxiety Plan * transfer to [facility] with telemetry * CIWA protocol with Ativan secondary to alcoholic hepatitis * Consult behavioral health and discharge planning * consult Dr. Steinberg for his anxiety disorder. * encourage oral intake * IV thiamine 100 mg every 8 hours for 2-3 days. Folic acid 1 mg daily * Protonix 40 mg twice a day * hepatitis workup to include viral hepatitis panel, iron, total iron-binding capacity, and ultrasound. elevated iron saturation possibly secondary to malnutrition. Should be repeated. * Daily CBC, CMP, magnesium * VTE prophylaxis: VTE score is only 1 and he is ambulating. Stop SCDs. * CODE STATUS: Full code * Length of stay 3-4 days.
--- NOTE | 2019-01-03 17:15 | CONS ---
CONSULTING PHYSICIAN: Jaxson Steinberg MD DATE OF CONSULTATION: 01/03/2019 Site where the services are provided is [facility] in [place], [place]. Site where the services are provided from our office is in [facility]. Length of service or time for this 60-minute inpatient telemedicine event is 60 minutes. IDENTIFICATION: The patient is a 43-year-old male who is admitted to the inpatient MICU at [facility] on 01/01/2018. He is seen for psychiatric consultation per the request of staff attending, Dr. Carrillo, and his treatment team. CHIEF COMPLAINT: "It has been a progression. It started back around when he was around 18." HISTORY OF PRESENT ILLNESS: The patient is a 43-year-old male who is admitted for symptoms of alcohol withdrawal and is undergoing detox treatment at this point in time. The patient states that he started drinking back around when he was 18 years of age "after my dad of cancer. We were really close." The patient states that the drinking problem escalated and worsened considerably after he went through a divorce from his first marriage after being for about 12 years. He has 5 children from the marriage. He states it was very traumatic for him and since that time, he has been drinking pretty heavily up to 8 ounces of hard liquor every night, primarily rum, even a pint a day or more according to the patient. He states that he is not sleeping secondary to anxiety and he reports racing thoughts or ruminations. He states that he drinks sometimes to get some sleep, but then if he drinks too much, he cannot sleep at all. He also is noting that he is struggling with depression and then again, he emphasizes anxiety because he has "a high stress job," although he notes that he just got fired this past week. He has also been having marital difficulties because his has a history of bipolar disease, and she is having mood swings and then his drinking is not helping matters at all per the patient's report. The patient himself denies any mood swings. He denies any OCD symptoms. He feels hopeless, and he states that he wants to get help for his drinking. He wants to close this chapter of his life where he has been struggling so significantly with his alcohol dependence. He states he has been sober for the last 48 hours. He denies any suicidal or homicidal ideations or any psychotic, delusional or paranoid symptoms. MEDICATIONS: At the time of admission none. ALLERGIES: The patient is allergic to . PAST MEDICAL HISTORY: 1. Thrombocytopenia. 2. History of liver issues. REVIEW OF SYSTEMS: Aside from blood and hepatic, all other major organ systems are negative at this point in time for acute difficulties or complications. FAMILY PSYCHIATRIC AND CD HISTORY: The patient denies. PAST PSYCHIATRIC AND CD HISTORY: The patient denies any previous psychiatric hospitalizations or chemical dependency treatments. Denies any previous suicide attempts, self-injurious behaviors, or eating disorder history. Denies any DWIs in the past or detox admissions for that matter, and denies any past psychiatric medication history. SOCIAL HISTORY: The patient was born in [place], [place], raised in [place], [place]. 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 He has been x2. First marriage was for 12 years and he has 5 children from the marriage. He was for 10 years. He has had a 2nd marriage for the past 3 years. His current works at the [employer] [place] with his . He denies any prior service or current legal difficulties. He does still believe in God at this point in time, but he states his edinson has been shaken now with the trials and tribulations he has been facing over the past number of years involving his drinking. VITAL SIGNS: 133/93, 90, 18, and 97.9 degrees. MENTAL STATUS EXAMINATION: The patient is a 43-year-old white male in no apparent distress. Speech is of regular rate and rhythm. The patient is cognitively oriented x3. Psychomotor activity is within normal limits. There are no abnormal motor movements or tics observed. Gait and station are not observed. This patient is lying in bed during the course of the interview. Mood is depressed and anxious. Affect is restricted and consistent with stated mood. The patient does become tearful throughout the course of interview, but is cooperative overall for the purposes of the interview. There is no behavioral or stated evidence of acute suicidal or homicidal ideation or acute psychotic, delusional, or paranoid symptoms. Thought processes are significant for racing thoughts and ruminations as well as circumstantiality. There are no acute manic symptoms or loose associations evident. Judgment and insight appear unimpaired at this point in time. Motivation for help is fair to good. IMPRESSION: [place] I: 1. Alcohol dependence F10.20. 2. Major depressive disorder, severe, F32.2. 3. Anxiety disorder, not otherwise specified, F41.9. 4. Rule out major depressive disorder. [place] II: None. Weston III: 1. Thrombocytopenia. 2. History of liver issues. [place] IV: Severe. Weston V: 55. PLAN: 1. Sobriety. 2. AA rep to visit the patient while on the unit. 3. Pastoral guidance. 4. Folic acid supplementation. 5. Thiamine supplementation. 6. Ativan per [facility] protocol. 7. Begin trial of Prozac 20 mg q.a.m. to help with symptoms of depression. 8. Begin trial of Seroquel 25 mg at bedtime to help with clarity of thought and to reduce racing thoughts, ruminations, anxiety, and also to assist with sleep initiation and maintenance. 9. Begin trial of Topamax 25 mg b.i.d. for mood stability, anxiety reduction, and seizure prophylaxis. 10.Other medications per the patient's primary care inpatient medical treatment team. 11.Recommend when the patient is medically stabilized that he will be transferred to inpatient chemical dependency treatment for further help with the patient to obtain sobriety. 12.We will continue to follow up with the patient on an as-needed basis while he remains on the inpatient MICU at [facility] in [place], [place]. 13.We will follow up with the patient sooner if any complications in the interim. 14.Crisis plan is in place. [facility] /[id number]
[2019-01-03] MEDS ORDERED: QUEtiapine 25 MG Tab PO PRN (17:17)
[2019-01-03] MEDS: Folic Acid 1 MG Tab PO SCH (20:05)
[2019-01-03] MEDS ORDERED: QUEtiapine 25 MG Tab PO SCH (21:00)
[2019-01-04] MEDS: Thiamine 200 MG/2 ML MDV IVPUSH SCH ×3 (04:05→20:06)
[2019-01-04] MEDS: LORazepam 1 MG Tab PO PRN ×3 (07:57→20:20)
[2019-01-04] MEDS: FLUoxetine 20 MG Cap PO SCH (08:01)
--- NOTE | 2019-01-04 08:55 | US ---
Abdominal ultrasound: Multiple real-time images were obtained of the abdomen. Comparison: No prior abdominal imaging. Liver shows no discrete abnormality. Pancreas appears within normal limits. Aorta shows no aneurysm. Common bile duct is mildly prominent measuring up to 9 mm. Prior cholecystectomy is noted. Kidneys show no hydronephrosis or mass. Right kidney length is 11.2 cm and left kidney length is 12.8 cm. Spleen size is normal at 11.6 cm. Inferior vena cava is patent. Portal vein shows normal hepatopedal flow. Impression: 1. Mildly prominent common bile duct measuring up to 9 mm. This is most likely residual from prior cholecystectomy. 2. No additional abnormality is appreciated on abdominal ultrasound exam. Diagnostic code #2
[2019-01-04] MEDS ORDERED: Potassium Chloride 20 MEQ Tab.ER PO ONE (09:44)
[2019-01-04] MEDS: Magnesium Oxide 400 MG Tab PO SCH ×2 (11:04→20:06)
--- NOTE | 2019-01-04 12:08 | PCM.PN ---
- General Info Date of Service: 01/04/19 Admission Dx/Problem (Free Text): Admission Diagnosis/Problem Admission Diagnosis/Problem Alcohol abuse Subjective Update: Patient is doing much better. He did require Ativan 1 mg by mouth for anxiety and CIWA of 9. Functional Status: Reports: Pain Controlled - Review of Systems General: Reports: No Symptoms HEENT: Reports: No Symptoms Pulmonary: Reports: No Symptoms Cardiovascular: Reports: No Symptoms Gastrointestinal: Reports: No Symptoms Genitourinary: Reports: No Symptoms Neurological: Reports: Tremors Psychiatric: Reports: Anxiety - Patient Data Vitals - Most Recent: Last Vital Signs Temp 97.8 F 01/04/19 12:00 Pulse 92 01/04/19 12:00 Resp 18 01/04/19 12:00 BP 127/89 01/04/19 12:00 Pulse Ox 96 01/04/19 12:00 Weight - Most Recent: 170 lb I&O - Last 24 Hours: Intake & Output 01/03/19 01/04/19 01/04/19 22:59 06:59 14:59 Intake Total 1200 1200 Balance 1200 1200 Lab Results Last 24 Hours: Laboratory Results - last 24 hr 01/04/19 01/04/19 Range/Units 05:08 05:08 WBC 6.74 (4.23-9.07) K/mm3 RBC 3.82 L (4.63-6.08) M/mm3 Hgb 13.3 L (13.7-17.5) gm/dl Hct 39.9 L (40.1-51.0) % MCV 104.5 H (79.0-92.2) fl MCH 34.8 H (25.7-32.2) pg MCHC 33.3 (32.2-35.5) g/dl RDW Std Deviation 52.4 H (35.1-43.9) fL Plt Count 101 L (163-337) K/mm3 MPV 10.0 (9.4-12.3) fl Neut % (Auto) 76.3 H (34.0-67.9) % Lymph % (Auto) 15.7 L (21.8-53.1) % [place] % (Auto) 6.5 (5.3-12.2) % Eos % (Auto) 1.3 (0.8-7.0) Baso % (Auto) 0.1 (0.1-1.2) % Neut # (Auto) 5.13 (1.78-5.38) K/mm3 Lymph # (Auto) 1.06 L (1.32-3.57) K/mm3 [place] # (Auto) 0.44 (0.30-0.82) K/mm3 Eos # (Auto) 0.09 (0.04-0.54) K/mm3 Baso # (Auto) 0.01 (0.01-0.08) K/mm3 Sodium 136 (136-145) mEq/L Potassium 3.4 L (3.5-5.1) mEq/L Chloride 100 (98-107) mEq/L Carbon Dioxide 27 (21-32) mEq/L Anion Gap 12.4 (5-15) BUN 9 (7-18) mg/dL Creatinine 0.9 (0.7-1.3) mg/dL Est Cr Clr Drug Dosing 113.05 mL/min Estimated GFR (MDRD) > 60 (>60) mL/min BUN/Creatinine Ratio 10.0 L (14-18) Glucose 129 H (74-106) mg/dL Calcium 9.4 (8.5-10.1) mg/dL Magnesium 1.8 (1.8-2.4) mg/dl Total Bilirubin 1.6 H (0.2-1.0) mg/dL AST 224 H (15-37) U/L ALT 156 H (16-63) U/L Alkaline Phosphatase 65 (46-116) U/L Total Protein 8.5 H (6.4-8.2) g/dl Albumin 3.5 (3.4-5.0) g/dl Globulin 5.0 gm/dL Albumin/Globulin Ratio 0.7 L (1-2) Med Orders - Current: Current Medications Fluoxetine HCl (Prozac) 20 mg PO DAILY [facility] Last Admin: 01/04/19 08:01 Dose: 20 mg Folic Acid (Folic Acid) 1 mg PO BEDTIME [facility] Last Admin: 01/03/19 20:05 Dose: 1 mg Lorazepam (Ativan) 1 mg PO Q4H PRN; Protocol PRN Reason: Withdrawal Symptoms Last Admin: 01/04/19 07:57 Dose: 1 mg Magnesium Oxide (Magnesium Oxide) 400 mg PO BID [facility] Last Admin: 01/04/19 11:04 Dose: 400 mg Ondansetron HCl (Zofran Odt) 4 mg PO Q4H PRN PRN Reason: nausea, able to take PO Ondansetron HCl (Zofran) 4 mg IV Q4H PRN PRN Reason: Nausea/Vomiting Quetiapine Fumarate (Seroquel) 25 mg PO BEDTIME PRN PRN Reason: withdrawl symptoms Thiamine HCl (Vitamin B-1) 100 mg IVPUSH Q8H [facility] Stop: 01/04/19 23:00 Last Admin: 01/04/19 11:04 Dose: 100 mg Thiamine HCl (Vitamin B-1) 100 mg PO DAILY [facility] Discontinued Medications Chlordiazepoxide HCl (Librium) 50 mg PO ONETIME ONE Stop: 01/01/19 20:20 Last Admin: 01/01/19 20:44 Dose: 50 mg Enoxaparin Sodium (Lovenox) 40 mg SUBCUT DAILY [facility] Last Admin: 01/02/19 09:09 Dose: Not Given Folic Acid (Folic Acid) 1 mg PO ONETIME ONE Stop: 01/01/19 19:47 Last Admin: 01/01/19 20:08 Dose: 1 mg Folic Acid (Folic Acid) 1 mg PO DAILY [facility] Last Admin: 01/03/19 12:13 Dose: Not Given Sodium Chloride (Normal Saline) 1,000 mls @ 1,000 mls/hr IV ASDIRECTED [facility] Last Admin: 01/01/19 20:08 Dose: 1,000 mls/hr Magnesium Sulfate 4 gm/ Premix 50 mls @ 12.5 mls/hr IV ONETIME ONE Stop: 01/02/19 02:43 Last Admin: 01/01/19 23:54 Dose: 12.5 mls/hr Lactated Ringer's (Ringers, Lactated) 1,000 mls @ 125 mls/hr IV ASDIRECTED [facility] Last Admin: 01/02/19 09:10 Dose: 125 mls/hr Potassium Chloride 10 meq/ (Premix) 100 mls @ 100 mls/hr IV Q1H [facility] Stop: 01/02/19 12:29 Last Admin: 01/02/19 12:18 Dose: 100 mls/hr Lorazepam (Ativan) 1 mg IVPUSH ONETIME ONE Stop: 01/01/19 19:47 Last Admin: 01/01/19 20:08 Dose: 1 mg Lorazepam (Ativan) 1 mg PO ONETIME ONE Stop: 01/03/19 12:01 Last Admin: 01/03/19 11:38 Dose: 1 mg Ondansetron HCl (Zofran) 4 mg IVPUSH ONETIME ONE Stop: 01/01/19 19:46 Last Admin: 01/01/19 20:08 Dose: 4 mg Pantoprazole Sodium (Protonix Iv) 40 mg IVPUSH Q12H [facility] Last Admin: 01/03/19 22:46 Dose: 40 mg Potassium Chloride (Klor-Con M20) 40 meq PO ONETIME ONE Stop: 01/04/19 09:45 Last Admin: 01/04/19 11:03 Dose: 40 meq Quetiapine Fumarate (Seroquel) 25 mg PO ONETIME ONE Stop: 01/03/19 12:01 Quetiapine Fumarate (Seroquel) 25 mg PO BEDTIME [facility] Thiamine HCl (Vitamin B-1) 100 mg PO ONETIME ONE Stop: 01/01/19 19:46 Last Admin: 01/01/19 20:08 Dose: 100 mg Thiamine HCl (Vitamin B-1) 100 mg IVPUSH Q8H [facility] Last Admin: 01/03/19 06:42 Dose: 100 mg Thiamine HCl (Vitamin B-1) 100 mg PO DAILY [facility] Last Admin: 01/03/19 11:38 Dose: 100 mg Topiramate (Topamax) 25 mg PO BID [facility] Last Admin: 01/03/19 11:38 Dose: 25 mg - Exam General: Alert, Oriented HEENT: Pupils Equal, Pupils Reactive, EOMI, Mucous Membr. Moist/[place] Neck: Supple Lungs: Clear to Auscultation, Normal Respiratory Effort Cardiovascular: Regular Rate, Regular Rhythm GI/Abdominal Exam: Normal Bowel Sounds, Soft, Non-Tender, No Organomegaly, No Distention, No Abnormal Bruit, No Mass Extremities: Normal Inspection, Normal Range of Motion, Non-Tender, No Pedal Edema, Normal Capillary Refill Skin: Warm, Dry, Intact Psy/Mental Status: Alert, Normal Affect, Normal Mood - Problem List Review Problem List Initiated/Reviewed/Updated: Yes - My Orders Last 24 Hours: My Active Orders 01/03/19 12:00 Thiamine [Vitamin B-1] 100 mg IVPUSH Q8H 01/03/19 17:17 QUEtiapine [SEROquel] 25 mg PO BEDTIME PRN 01/04/19 09:45 Magnesium Oxide 400 mg PO BID 01/05/19 05:11 CBC WITH AUTO DIFF [HEME] AM COMPREHENSIVE METABOLIC PN,CMP [CHEM] AM MAGNESIUM [CHEM] AM 01/05/19 09:00 Thiamine [Vitamin B-1] 100 mg PO DAILY 01/06/19 05:11 CBC WITH AUTO DIFF [HEME] AM COMPREHENSIVE METABOLIC PN,CMP [CHEM] AM MAGNESIUM [CHEM] AM - Plan Plan:: Assessment * 43-year-old male with acute alcohol withdrawal syndrome * Alcoholic hepatitis - AST/ALT ratio is 2/1. improving - Liver ultrasound showed no significant findings. * Chronic alcohol use and addiction. Patient is requesting help with alcohol abstinence. * mild dehydration * thrombocytopenia * Macrocytic anemia - Percent iron saturation is 67%, but this could be a false positive secondary to malnutrition and a low transferrin. He should repeat this as an outpatient. * hypokalemia * anxiety Plan * MedSurg with telemetry * CIWA protocol with Ativan secondary to alcoholic hepatitis * Behavioral health and discharge planning consulted. He will discharge tomorrow and be admitted to [facility] in [place]. * Seen by Dr. Steinberg for his anxiety disorder. Started on Prozac 20 mg daily * encourage oral intake * IV thiamine 100 mg every 8 hours for 2-3 days. Folic acid 1 mg daily * D/C Protonix 40 mg twice a day * hepatitis workup to include viral hepatitis panel, iron, total iron-binding capacity, and ultrasound. elevated iron saturation possibly secondary to malnutrition. Should be repeated. * Replete potassium and mag * Daily CBC, CMP, magnesium * VTE prophylaxis: VTE score is only 1 and he is ambulating. Stop SCDs. * CODE STATUS: Full code * Length of stay 3-4 days.
[2019-01-04] MEDS: Folic Acid 1 MG Tab PO SCH (20:06)
[2019-01-05] MEDS ORDERED: FLU Vacc QS2019-20(6MOS+)/PF 60 MCG/0.5 ML SYRINGE IM ONE (08:00)
[2019-01-05] MEDS: Magnesium Oxide 400 MG Tab PO SCH (08:05)
[2019-01-05] MEDS: FLUoxetine 20 MG Cap PO SCH (08:05)
--- NOTE | 2019-01-05 08:06 | PCM.DCSUM1 ---
Discharge Summary - Hospital Course HPI Initial Comments: 43-year-old male with history of alcoholism presents to the emergency room requesting help with alcohol detox. Patient's last drink was last night and he drinks approximately 250 mL of rum. He normally has 4-5 shots per night with one shot in the morning and 1 at noon. He has been drinking at this level for approximately 20 years except for an approximate 4 week period last month when he weaned himself off of alcohol. Unfortunately, on December 02 he was at a golf tournament and drink a couple bloody Sharon's and that slowly increased his alcohol consumption. Patient has significant tremulousness in the emergency room and was given 1 mg of Ativan which had a significant improvement. He has been drinking for approximately 10 years. It started with just 1-3 beers a day and escalated to its current level. Today his boss told him that he was fired unless he gets help with his alcohol and he his essentially said the same thing. He denies any nausea, vomiting, met she is here, melena, hematemesis, or coffee ground emesis. Denies any chest pain. He does state he has had elevations in his liver enzymes in the past secondary to drinking. He was apparently seen in the emergency room in November. Labs in the emergency room: White blood cell count 7.2, hemoglobin 14.7, platelets 122, INR 1.08, sodium 139, potassium 4.0, chloride 102, carbon dioxide 26, anion gap 15.0, BUN 8, creatinine 0.8 and magnesium 1.6, total bilirubin 2.0, AST 475, ALT 217, albumin 4.1. Urine drug screen negative. Patient was given IV fluids, 1 mg IV Ativan, and Librium 50 mg in the emergency room. Diagnosis: Stroke: No - Discharge Data Discharge Date: 01/05/19 Discharge Disposition: DC/Tfer to Inpt Rehab Fac 62 Condition: Good - Referral to Home Health Primary Care Physician: PCP None - Patient Summary/Data Consults: Consultations 01/01/19 22:47 Consult to Case Management/Tax Revenue Officer [CONS] Routine 01/02/19 08:24 Consult for Substance Abuse [CONS] Routine 01/03/19 08:31 Consult to Physician [CONS] Routine 01/03/19 11:00 Consult to Spiritual Care [CONS] Routine Hospital Course: Assessment * 43-year-old male with acute alcohol withdrawal syndrome * Alcoholic hepatitis - AST/ALT ratio is 2/1. improving - Liver ultrasound showed no significant findings. * Chronic alcohol use and addiction. Patient is requesting help with alcohol abstinence. * mild dehydration * thrombocytopenia * Macrocytic anemia - Percent iron saturation is 67%, but this could be a false positive secondary to malnutrition and a low transferrin. He should repeat this as an outpatient. * hypokalemia * anxiety Plan * MedSurg with telemetry * CIWA protocol with Ativan secondary to alcoholic hepatitis * Discharge toto [facility] in [place]. * Seen by Dr. Steinberg for his anxiety disorder. Started on Prozac 20 mg daily * encourage oral intake * thiamine 100 mg every day. Folic acid 1 mg daily * hepatitis workup to include viral hepatitis panel, iron, total iron-binding capacity, and ultrasound. elevated iron saturation possibly secondary to malnutrition. Should be repeated. - Patient Instructions Diet: Usual Diet as Tolerated, No Alcoholic Beverages Driving: Do Not Drive Showering/Bathing: May Shower Other/Special Instructions: Go to [facility] in [place] for intake at 1300 today. - Discharge Plan *PRESCRIPTION DRUG MONITORING PROGRAM REVIEWED*: No *COPY OF PRESCRIPTION DRUG MONITORING REPORT IN PATIENT VALERIANO: No Prescriptions/Med Rec: FLUoxetine HCl [Prozac] 20 mg PO DAILY #30 capsule Folic Acid 1 mg PO BEDTIME #30 tablet Magnesium Oxide 400 mg PO BID #60 tablet QUEtiapine [SEROquel] 25 mg PO BEDTIME PRN #30 tablet PRN Reason: Anxiety Thiamine [Vitamin B-1] 100 mg PO DAILY #30 tablet Home Medications: Home Meds FLUoxetine HCl [Prozac] 20 mg PO DAILY #30 capsule 01/05/19 [Rx] Folic Acid 1 mg PO BEDTIME #30 tablet 01/05/19 [Rx] Magnesium Oxide 400 mg PO BID #60 tablet 01/05/19 [Rx] QUEtiapine [SEROquel] 25 mg PO BEDTIME PRN #30 tablet 01/05/19 [Rx] Thiamine [Vitamin B-1] 100 mg PO DAILY #30 tablet 01/05/19 [Rx] - Discharge Summary/Plan Comment DC Time >30 min.: Yes Discharge Summary/Plan Comment: Discharge to go to [facility] in [place]. - General Info Date of Service: 01/05/19 Admission Dx/Problem (Free Text: Admission Diagnosis/Problem Admission Diagnosis/Problem Alcohol abuse Subjective Update: Patient is doing well and ready to discharge so he can be admitted to [facility] inpatient services. Functional Status: Reports: Pain Controlled - Review of Systems General: Reports: No Symptoms HEENT: Reports: No Symptoms Pulmonary: Reports: No Symptoms Cardiovascular: Reports: No Symptoms Musculoskeletal: Reports: No Symptoms - Patient Data Vitals - Most Recent: Last Vital Signs Temp 98.1 F 01/05/19 05:35 Pulse 78 01/05/19 05:35 Resp 16 01/05/19 05:35 BP 109/66 01/05/19 05:35 Pulse Ox 99 01/05/19 05:35 Weight - Most Recent: 164 lb 12.8 oz I&O - Last 24 hours: Intake & Output 01/04/19 01/05/19 01/05/19 22:59 06:59 14:59 Intake Total 700 600 Balance 700 600 Med Orders - Current: Current Medications Fluoxetine HCl (Prozac) 20 mg PO DAILY [facility] Last Admin: 01/05/19 08:05 Dose: 20 mg Folic Acid (Folic Acid) 1 mg PO BEDTIME [facility] Last Admin: 01/04/19 20:06 Dose: 1 mg Lorazepam (Ativan) 1 mg PO Q4H PRN; Protocol PRN Reason: Withdrawal Symptoms Last Admin: 01/04/19 20:20 Dose: 1 mg Magnesium Oxide (Magnesium Oxide) 400 mg PO BID [facility] Last Admin: 01/05/19 08:05 Dose: 400 mg Ondansetron HCl (Zofran Odt) 4 mg PO Q4H PRN PRN Reason: nausea, able to take PO Ondansetron HCl (Zofran) 4 mg IV Q4H PRN PRN Reason: Nausea/Vomiting Quetiapine Fumarate (Seroquel) 25 mg PO BEDTIME PRN PRN Reason: withdrawl symptoms Thiamine HCl (Vitamin B-1) 100 mg PO DAILY [facility] Last Admin: 01/05/19 08:05 Dose: 100 mg Discontinued Medications Chlordiazepoxide HCl (Librium) 50 mg PO ONETIME ONE Stop: 01/01/19 20:20 Last Admin: 01/01/19 20:44 Dose: 50 mg Enoxaparin Sodium (Lovenox) 40 mg SUBCUT DAILY [facility] Last Admin: 01/02/19 09:09 Dose: Not Given Folic Acid (Folic Acid) 1 mg PO ONETIME ONE Stop: 01/01/19 19:47 Last Admin: 01/01/19 20:08 Dose: 1 mg Folic Acid (Folic Acid) 1 mg PO DAILY [facility] Last Admin: 01/03/19 12:13 Dose: Not Given Sodium Chloride (Normal Saline) 1,000 mls @ 1,000 mls/hr IV ASDIRECTED [facility] Last Admin: 01/01/19 20:08 Dose: 1,000 mls/hr Magnesium Sulfate 4 gm/ Premix 50 mls @ 12.5 mls/hr IV ONETIME ONE Stop: 01/02/19 02:43 Last Admin: 01/01/19 23:54 Dose: 12.5 mls/hr Lactated Ringer's (Ringers, Lactated) 1,000 mls @ 125 mls/hr IV ASDIRECTED [facility] Last Admin: 01/02/19 09:10 Dose: 125 mls/hr Potassium Chloride 10 meq/ (Premix) 100 mls @ 100 mls/hr IV Q1H [facility] Stop: 01/02/19 12:29 Last Admin: 01/02/19 12:18 Dose: 100 mls/hr Influenza Virus Vaccine (Pharmacy To Dose - Influenza Vaccine) 1 each IM ONETIME ONE Stop: 01/05/19 07:54 Influenza Virus Vaccine (Fluzone Quad [id number] Syringe) 60 mcg IM .ONCE ONE Stop: 01/05/19 08:01 Lorazepam (Ativan) 1 mg IVPUSH ONETIME ONE Stop: 01/01/19 19:47 Last Admin: 01/01/19 20:08 Dose: 1 mg Lorazepam (Ativan) 1 mg PO ONETIME ONE Stop: 01/03/19 12:01 Last Admin: 01/03/19 11:38 Dose: 1 mg Ondansetron HCl (Zofran) 4 mg IVPUSH ONETIME ONE Stop: 01/01/19 19:46 Last Admin: 01/01/19 20:08 Dose: 4 mg Pantoprazole Sodium (Protonix Iv) 40 mg IVPUSH Q12H [facility] Last Admin: 01/03/19 22:46 Dose: 40 mg Potassium Chloride (Klor-Con M20) 40 meq PO ONETIME ONE Stop: 01/04/19 09:45 Last Admin: 01/04/19 11:03 Dose: 40 meq Quetiapine Fumarate (Seroquel) 25 mg PO ONETIME ONE Stop: 01/03/19 12:01 Quetiapine Fumarate (Seroquel) 25 mg PO BEDTIME [facility] Thiamine HCl (Vitamin B-1) 100 mg PO ONETIME ONE Stop: 01/01/19 19:46 Last Admin: 01/01/19 20:08 Dose: 100 mg Thiamine HCl (Vitamin B-1) 100 mg IVPUSH Q8H [facility] Last Admin: 01/03/19 06:42 Dose: 100 mg Thiamine HCl (Vitamin B-1) 100 mg PO DAILY [facility] Last Admin: 01/03/19 11:38 Dose: 100 mg Thiamine HCl (Vitamin B-1) 100 mg IVPUSH Q8H [facility] Stop: 01/04/19 23:00 Last Admin: 01/04/19 20:06 Dose: 100 mg Topiramate (Topamax) 25 mg PO BID [facility] Last Admin: 01/03/19 11:38 Dose: 25 mg - Exam Quality Assessment: Reports: Supplemental Oxygen General: Reports: Alert, Oriented HEENT: Reports: Pupils Equal Neck: Reports: Supple Lungs: Reports: Clear to Auscultation, Normal Respiratory Effort Cardiovascular: Reports: Regular Rate, Regular Rhythm GI/Abdominal Exam: Normal Bowel Sounds, Soft, Non-Tender, No Organomegaly, No Distention, No Abnormal Bruit, No Mass Extremities: Normal Inspection, Normal Range of Motion, Non-Tender, No Pedal Edema, Normal Capillary Refill Skin: Reports: Warm, Dry, Intact Psy/Mental Status: Reports: Alert, Normal Affect, Normal Mood
[2019-01-05] MEDS ORDERED: Thiamine 100 MG Tab PO SCH (09:00)
== END 2019-01-05 08:29 | DRG 775 ==
LOC: JD.ED 18:44 → JD.ICU 20:52 → JD.MS 01-04 22:19
PROVIDERS: ADMIT Emergency Medicine; ATTEND Family Medicine
PROC: HZ2ZZZZ Detoxification Services for Substance Abuse Treatment (ICD-10-PCS; principal; 2019-01-01)
PROC: 3E02340 Introduction of Influenza Vaccine into Muscle, Percutaneous Approach (ICD-10-PCS; 2019-01-05)
DX: F10.239 Alcohol dependence with withdrawal, unspecified (principal); K70.10 Alcoholic hepatitis without ascites; F10.288 Alcohol dependence with other alcohol-induced disorder; D69.6 Thrombocytopenia, unspecified; E83.42 Hypomagnesemia; E86.0 Dehydration; D53.9 Nutritional anemia, unspecified; E46 Unspecified protein-calorie malnutrition; E87.6 Hypokalemia; F32.2 Major depressive disorder, single episode, severe without psychotic features; F41.9 Anxiety disorder, unspecified; F17.200 Nicotine dependence, unspecified, uncomplicated; Z90.49 Acquired absence of other specified parts of digestive tract; Z23 Encounter for immunization; Z91.09 Other allergy status, other than to drugs and biological substances; Z68.21 Body mass index [BMI] 21.0-21.9, adult
CPT/HCPCS: 36415; 71045; 71045-26; 76700; 76700-26; 80053; 80074; 80306; 82607; 82728; 83540; 83690; 83735; 84466; 84484; 85025; 85610; 86803; 87340; 90686; 93005; 93010; 96361; 96374; 96375; 99285; 99285-25; A9270-GY; C9113; G0008; J2060; J2405; J3411; J3475; J3480; J7040; J7120

== ENCOUNTER 2020-10-17 17:25 | Emergency (ER) | payer OTHER, MEDICAID ==
[2020-10-17] MEDS ORDERED: Lactated Ringers 1,000 ML IV ONE (17:52)
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
[2020-10-17] MEDS ORDERED: Diphtheria,Pertussis(Acell),Tetanus Vaccine 0.5 ML Syringe IM ONE (17:58)
[2020-10-17] MEDS ORDERED: Iopamidol 755 MG/ML 50 ML Bottle IVPUSH ONE (18:34)
[2020-10-17] MEDS ORDERED: Iopamidol 755 Mg/ML 100 ML Bottle IVPUSH ONE (18:34)
[2020-10-17] MEDS ORDERED: Sodium Chloride 0.9% 10 ML Syringe FLUSH SCH (18:45)
--- NOTE | 2020-10-17 19:04 | CT ---
Head CT Technique: Multiple axial sections of the brain were obtained. Intravenous test was not utilized. Reconstructed coronal and sagittal images were obtained. Comparison: No prior intracranial imaging is available. Findings: Ventricles along with basal cisterns and sulci over the convexities are mildly prominent for the patient's age. There is an incidental cortical calcification seen within the right parietal convexity measuring 2.6 mm. No other abnormal parenchymal densities are seen. No evidence of intracranial hemorrhage. No midline shift or mass-effect is seen. Bone window settings were reviewed which show visualized paranasal sinuses and mastoid sinuses to appear clear. No acute calvarial abnormality is appreciated. Impression: 1. Mild generalized atrophy for the patient's age. 2. No acute intracranial abnormality is identified. Diagnostic code #2
--- NOTE | 2020-10-17 19:16 | CT ---
CT facial bones Technique: Multiple axial sections through the facial bones were obtained. Reconstructed coronal and sagittal images were obtained. Comparison: No prior studies available. Findings: Mucosal thickening is seen within the left maxillary sinus. Left maxillary sinus shows some absence of the inferior maxillary floor which appears to be chronic and could be due to previous surgery, trauma or old infection. There is an area of soft tissue air within an area of increased density next to the right side of the mandible. No discrete soft tissue abnormality is seen and this raises the possibility of pre-existing abscess. This finding measures approximately 2.3 cm. Please correlate clinically. There are nondisplaced nasal bone fractures being seen. Nasal septal deviation is noted which appears chronic. No additional facial fracture is seen. Impression: 1. Mucosal thickening within the left maxillary sinus with absence of portions of the inferior maxillary floor which appears to be chronic. Please correlate if patient has had previous surgery, old infection or old trauma. 2. Nasal septal deviation which is chronic. 3. Area of increased density next to the right side of the mandible with soft tissue air. This raises the possibility of abscess, please correlate. I do not see any definite soft tissue extension to indicate that this represents an acute injury. 4. Nondisplaced nasal bone fractures. No additional facial bone abnormality is seen. Diagnostic code #3
--- NOTE | 2020-10-17 19:22 | CT ---
CT cervical spine Technique: Multiple axial sections were obtained from above C1 inferiorly through T1. Reconstructed coronal and sagittal images were obtained. Findings: Mild disc space narrowing is noted at C5-6 and C6-7. Anterior osteophytes are seen at both of these levels. Slight posterior osteophytes as well as small calcification is seen within the posterior longitudinal ligament at C5-6. Vertebral body heights are maintained. Slightly abnormal flexion is seen possibly positional. Posterior disc bulge is noted at C2-3 which contains a calcification. C3-4 level shows a mild posterior disc bulge. Other discs are poorly seen. No central canal stenosis or neural foraminal stenosis. No subluxation or fracture is seen. Impression: 1. Degenerative change as noted above. 2. Slightly abnormal flexion of the cervical spine most likely positional. 3. No acute fracture or acute subluxation is seen. Diagnostic code #2
--- NOTE | 2020-10-17 19:31 | CT ---
CT chest Technique: Multiple axial sections were obtained from above the lung apices inferiorly through the lung bases. Intravenous contrast was utilized. Reconstructed coronal and sagittal images were obtained. Comparison: No prior chest CT is available, prior chest x-ray of 01/01/19 is available. Findings: Thoracic aorta shows no aneurysm. Mediastinum and hilar regions show no adenopathy. No pericardial thickening is seen. Lung window settings were reviewed which show no acute parenchymal change. Minimal scarring is seen within both upper lungs. No pleural effusions or pneumothorax is seen. Bone window settings were reviewed which show no acute osseous abnormality. Impression: 1. Nothing acute is seen on CT study of the chest. Diagnostic code #1 CT abdomen and pelvis Technique: Multiple axial sections were obtained from above the dome of the diaphragm inferiorly through the pubic symphysis. Intravenous contrast was utilized. No oral contrast has been given. Reconstructed coronal and sagittal images were obtained. Comparison: No prior CT abdomen or pelvis study is available, previous abdominal ultrasound of 01/04/19 is available. Findings: Liver contains no focal parenchymal abnormality. Spleen size is normal. Adrenal glands showed no nodule. Slightly high density abnormality is noted off the superior left kidney measuring 1.7 cm. Uncertain if this is solid or represents a slight hemorrhagic cyst. Kidneys are otherwise unremarkable. Pancreas shows a small low-density lesion within the body measuring about 1.3 cm. Abdominal aorta shows no aneurysm. Surgical clips are seen from prior cholecystectomy. No retroperitoneal adenopathy or mesenteric abnormalities are seen. No pelvic mass or adenopathy is seen. No free fluid or inflammatory change is seen. Bone window settings were reviewed which show nothing acute. Impression: 1. Abnormality off the upper left kidney, uncertain if this is a hemorrhagic cyst or solid lesion. 2. Small cystic area within the body of the pancreas. I am uncertain if this is benign. Please consider contrast-enhanced MRI at some time in the early future to further evaluate these 2 findings. 3. Prior cholecystectomy is noted. 4. Nothing acute is seen on CT study of the abdomen and pelvis. Diagnostic code #9
--- NOTE | 2020-10-17 19:31 | CT ---
CT thoracic spine Technique: Multiple axial sections through the thoracic spine were obtained. Reconstructed coronal and sagittal images were obtained. Findings: Mild scattered disc space narrowing is seen. Mild scattered endplate osteophytes are seen. No bony central or bony neural foraminal stenosis is seen. Slight scoliosis is noted. No acute fracture or subluxation is seen. Impression: 1. Mild degenerative change as noted above with slight scoliosis. 2. No acute abnormality is appreciated on CT study of the thoracic spine. Diagnostic code #2
== END 2020-10-17 19:55 | disposition home or self-care (01) ==
LOC: JD.ED 17:25
DX: S06.0X9A Concussion with loss of consciousness of unspecified duration, initial encounter (principal); S02.2XXA Fracture of nasal bones, initial encounter for closed fracture; S16.1XXA Strain of muscle, fascia and tendon at neck level, initial encounter; Z23 Encounter for immunization; Z72.0 Tobacco use; Z91.013 Allergy to seafood; Z91.09 Other allergy status, other than to drugs and biological substances; V29.9XXA Motorcycle rider (driver) (passenger) injured in unspecified traffic accident, initial encounter; Y92.410 Unspecified street and highway as the place of occurrence of the external cause
CPT/HCPCS: 36415; 70450; 70486; 71260; 72125; 72128; 74177; 80053; 85025; 90471; 90715; 99284; J7120